=== PATIENT | female | born 1940 | race African-American/Black ===

== ENCOUNTER 2018-10-27 09:48 | Outpatient (CLI) | payer MEDICARE ==
[2018-10-27 10:58] LABS: #Basophils 0.1 thou/uL (0.0-0.2); #Lymphocytes 1.5 thou/uL (1.20-3.40); #Monocytes 0.7 thou/uL (0.11-0.59); #Neutrophils 4.5 thou/uL (1.40-6.50); %Basophils 1.7 % (0.0-1.0); %Eosinophils 0.7 % (0.0-10.0); %Lymphocytes 22.2 % (21.0-51.0); %Monocytes 10.2 % (0.0-10.0); %Neutrophils 65.2 % (42.0-75.0); Hemoglobin 12.8 g/dL (12.0-16.0); Mean Corpuscular HGB CONC 31.3 g/dL (32.0-36.0); Mean Corpuscular Hemoglobin 30.4 pg (27.0-31.0); Mean Corpuscular Volume 96.9 fL (78.0-98.0); Mean Platelet Volume 6.8 fL (7.4-10.4); Platelet Count 330 thou/uL (130-400); RBC Distribution Width 14.3 % (11.5-14.5); Red Blood Cell (RBC) Count 4.22 mill/uL (4.20-5.40)
[2018-10-27 11:10] LABS: ALT (SGPT) 8 U/L (8-55); AST (SGOT) 12 U/L (5-34); Albumin 3.9 g/dL (3.4-4.8); Alkaline Phosphatase 131 U/L (40-150); Anion Gap 13 mmol/L (10-20); BUN (Urea Nitrogen) 6 mg/dL (9.8-20.1); Bilirubin, Total 0.5 mg/dL (0.2-1.2); Calc. Creatinine Clearance 0 mL/min (70-130); Calcium 10.9 mg/dL (7.8-10.44); Carbon Dioxide 26 mmol/L (23-31); Chloride 103 mmol/L (98-107); Cholesterol 253 mg/dl (< 200 Desired); Estimated GFR-MDRD 77; Globulin 2.7 g/dL (2.4-3.5); Glucose 104 mg/dL (83-110); HDL Cholesterol 83 mg/dL (>60 Neg Risk); LDL Cholesterol, Calculated 153 mg/dL; Potassium 3.9 mmol/L (3.5-5.1); Protein, Total 6.6 g/dL (6.0-8.3); Sodium 138 mmol/L (136-145); Triglycerides 84 mg/dL (Less than 150)
--- NOTE | 2018-11-02 15:47 | MMO ---
Bilateral MAMMO Bilat Screen DDI. CLINICAL HISTORY: Patient is 78 years old and is seen for screening. The patient has no family history of breast cancer. The patient has a history of colon cancer more than 10 years ago. The patient has a history of left needle biopsy in 2017 - benign. VIEWS: The views performed were: bilateral craniocaudal and bilateral mediolateral oblique. FILMS COMPARED: The present examination has been compared to prior imaging studies performed at [facility] on 09/15/2014, 07/04/2016 and 07/22/2016. This study has been interpreted with the assistance of computer-aided detection. MAMMOGRAM FINDINGS: There are scattered fibroglandular densities. There are no suspicious masses, suspicious calcifications, or new areas of architectural distortion. IMPRESSION: THERE IS NO MAMMOGRAPHIC EVIDENCE OF MALIGNANCY. A ROUTINE FOLLOW-UP MAMMOGRAM IN 1 YEAR IS RECOMMENDED. ACR BI-RADS Category 1 - Negative MAMMOGRAPHY NOTE: 1. A negative mammogram report should not delay a biopsy if a dominant of clinically suspicious mass is present. 2. Approximately 10% to 15% of breast cancers are not detected by mammography. 3. Adenosis and dense breasts may obscure an underlying neoplasm.
== END 2018-10-27 09:49 | disposition home or self-care (01) ==
LOC: SCSMAMMO 09:48
PROVIDERS: ATTEND Family Medicine
DX: Z12.31 Encounter for screening mammogram for malignant neoplasm of breast (principal)
CPT/HCPCS: 36415; 77067; 80053; 80061; 85025

== ENCOUNTER 2018-11-26 12:28 | Outpatient (CLI) | payer MEDICARE ==
--- NOTE | 2018-11-26 12:53 | RAD ---
CHEST 2 VIEWS: HISTORY: Dyspnea. COMPARISON: 08/15/2013. 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 There is associated tortuosity. Card iomegaly is noted. Pulmonary vessels are prominent. Chronic changes of the lung parenchyma, without consolidation or mass. Lungs are hyperinflated. No pneumothorax or osseous abnormalities. Bilater al nipple shadows are noted. Coronary artery stent is noted. IMPRESSION: No significant interval change. POS: C
== END 2018-11-26 12:29 | disposition home or self-care (01) ==
LOC: RAD 12:28
PROVIDERS: ATTEND Internal Medicine
DX: R06.00 Dyspnea, unspecified (principal)
CPT/HCPCS: 71046

== ENCOUNTER 2020-05-15 10:54 | Outpatient (CLI) | payer MEDICARE ==
--- NOTE | 2020-05-15 11:32 | RAD ---
2 VIEW CHEST: Date: 05/15/2020 INDICATION: Dyspnea. COMPARISON: 08/23/2019. FINDINGS: Cardiomegaly with mild vascular engorgement. Diffuse interstitial prominence may represent mild inter stitial congestion or superimposed chronic interstitial process. The thoracic aortic stent graft is again noted with prominence of the thoracic aorta, which is stable . No evidence of consolidation or focal infiltrate. No significant effusion. Hyperexpansion again noted. Mild wedging of an upper thoracic vertebra. The other thoracic vertebral bodies maintain height and a lignment. IMPRESSION: Cardiomegaly with mild vascular and interstitial prominence, which appears stable. No significant int erval change. POS: AGW
== END 2020-05-15 10:55 | disposition home or self-care (01) ==
LOC: BICRAD 10:54
PROVIDERS: ATTEND Internal Medicine Pulmonary Disease
DX: R06.00 Dyspnea, unspecified (principal); I51.7 Cardiomegaly; J84.89 Other specified interstitial pulmonary diseases
CPT/HCPCS: 71046

== ENCOUNTER 2020-10-09 10:10 | Outpatient (CLI) | payer MEDICARE | END 2020-10-09 10:11 | disposition home or self-care (01) | LOC: BICULT 10:10 | PROVIDERS: ATTEND Physician Assistant Medical | DX: R74.8 Abnormal levels of other serum enzymes (principal); R16.0 Hepatomegaly, not elsewhere classified; I71.4 Abdominal aortic aneurysm, without rupture; I70.90 Unspecified atherosclerosis; K76.89 Other specified diseases of liver | CPT/HCPCS: 76705 ==

== ENCOUNTER 2020-10-16 09:58 | Outpatient (CLI) | payer MEDICARE | END 2020-10-16 09:59 | disposition home or self-care (01) | LOC: BICMAMMO 09:58 | PROVIDERS: ATTEND Family Medicine | DX: Z13.820 Encounter for screening for osteoporosis (principal); M81.0 Age-related osteoporosis without current pathological fracture; Z78.0 Asymptomatic menopausal state | CPT/HCPCS: 77080 ==

== ENCOUNTER 2021-05-30 16:16 | Inpatient (IN) | payer MEDICARE ==
[2021-05-30 18:18] VITALS: BMI 15.5
[2021-05-30] MEDS ORDERED: Acetaminophen 325 MG TAB PO PRN (20:26)
[2021-05-30] MEDS ORDERED: Ondansetron PF 4 MG/2 ML Vial IVP PRN (20:26)
[2021-05-30] MEDS: Mirtazapine 15 MG TAB PO SCH (21:14)
[2021-05-30 21:35] LABS: Magnesium 1.6 mg/dL (1.6-2.6)
[2021-05-30 21:39] LABS: Troponin I 0.021 ng/mL (< 0.028)
[2021-05-31 05:55] LABS: #Basophils 0.1 thou/uL (0.0-0.2); #Monocytes 0.8 thou/uL (0.11-0.59); #Neutrophils 4.3 thou/uL (1.40-6.50); %Basophils 0.9 % (0.0-1.0); %Eosinophils 0.3 % (0.0-10.0); %Lymphocytes 15.9 % (21.0-51.0); %Neutrophils 69.9 % (42.0-75.0); Hemoglobin 12.5 g/dL (12.0-16.0); Mean Corpuscular HGB CONC 32.6 g/dL (32.0-36.0); Mean Corpuscular Hemoglobin 31.5 pg (27.0-31.0); Mean Corpuscular Volume 96.5 fL (78.0-98.0); Mean Platelet Volume 8.5 fL (7.4-10.4); Platelet Count 190 thou/uL (130-400); RBC Distribution Width 13.2 % (11.5-14.5); Red Blood Cell (RBC) Count 3.97 mill/uL (4.20-5.40); White Blood Cell (WBC) Count 6.2 thou/uL (4.8-10.8)
[2021-05-31 06:45] LABS: Anion Gap 14 mmol/L (10-20); BUN (Urea Nitrogen) 9 mg/dL (9.8-20.1); Calc. Creatinine Clearance 35 mL/min (70-130); Calcium 10.2 mg/dL (7.8-10.44); Carbon Dioxide 21 mmol/L (23-31); Chloride 100 mmol/L (98-107); Glucose 72 mg/dL (83-110); Magnesium 1.5 mg/dL (1.6-2.6); Potassium 3.6 mmol/L (3.5-5.1); Sodium 131 mmol/L (136-145)
[2021-05-31] MEDS ORDERED: Nitroglycerin 0.4 MG TAB (25 Tab Bottle) SL PRN (07:07)
[2021-05-31] MEDS ORDERED: Magnesium 2 GM/50 ML 2 GM in Premix Bag 1 BAG IVPB SCH (07:30)
[2021-05-31] MEDS ORDERED: FLU VACC QS2021-22(65YR UP)/PF 240 MCG/0.7 ML SYRINGE IM ONE (09:00)
[2021-05-31] MEDS ORDERED: Atenolol 25 MG TAB PO SCH (09:00)
[2021-05-31 09:02] LABS: INR-International Normal Ratio 1.9; Prothrombin Time 21.8 sec (12.0-14.7)
[2021-05-31] MEDS: Aspirin Chewable 81 MG TAB PO SCH (09:18)
[2021-05-31] MEDS: Cilostazol 100 MG TAB PO SCH ×2 (09:18→16:16)
[2021-05-31] MEDS: Montelukast Sodium 10 mg Tablet PO SCH (09:18)
[2021-05-31] MEDS: Furosemide 20 MG TAB PO SCH (09:18)
[2021-05-31] MEDS: Cholecalciferol 1,000 UNITS (25 MCG) TAB PO SCH (09:19)
[2021-05-31] MEDS: Atorvastatin Calcium 10 MG TAB PO SCH (09:19)
[2021-05-31] MEDS ORDERED: Warfarin Sodium 3 MG TAB PO SCH (17:00)
[2021-05-31] MEDS: Mirtazapine 15 MG TAB PO SCH (20:25)
[2021-06-01 05:42] LABS: #Basophils 0.1 thou/uL (0.0-0.2); #Lymphocytes 0.8 thou/uL (1.20-3.40); #Monocytes 0.7 thou/uL (0.11-0.59); #Neutrophils 3.2 thou/uL (1.40-6.50); %Basophils 1.3 % (0.0-1.0); %Eosinophils 0.6 % (0.0-10.0); %Lymphocytes 17.4 % (21.0-51.0); %Monocytes 13.6 % (0.0-10.0); %Neutrophils 67.1 % (42.0-75.0); Hemoglobin 12.4 g/dL (12.0-16.0); Mean Corpuscular HGB CONC 32.2 g/dL (32.0-36.0); Mean Corpuscular Hemoglobin 30.8 pg (27.0-31.0); Mean Corpuscular Volume 95.9 fL (78.0-98.0); Mean Platelet Volume 8.6 fL (7.4-10.4); Platelet Count 164 thou/uL (130-400); Red Blood Cell (RBC) Count 4.02 mill/uL (4.20-5.40); White Blood Cell (WBC) Count 4.8 thou/uL (4.8-10.8)
[2021-06-01 05:57] LABS: INR-International Normal Ratio 1.9; Prothrombin Time 22.3 sec (12.0-14.7)
[2021-06-01 06:01] LABS: Anion Gap 12 mmol/L (10-20); BUN (Urea Nitrogen) 18 mg/dL (9.8-20.1); Calc. Creatinine Clearance 24 mL/min (70-130); Calcium 10.3 mg/dL (7.8-10.44); Carbon Dioxide 24 mmol/L (23-31); Chloride 101 mmol/L (98-107); Glucose 98 mg/dL (83-110); Potassium 3.6 mmol/L (3.5-5.1); Sodium 133 mmol/L (136-145)
[2021-06-01 06:05] LABS: D-Dimer Test 4.98 *mcg/mL (0.27-0.43)
[2021-06-01] MEDS: Cilostazol 100 MG TAB PO SCH ×2 (07:05→17:46)
[2021-06-01] MEDS: Aspirin Chewable 81 MG TAB PO SCH (08:33)
[2021-06-01] MEDS: Cholecalciferol 1,000 UNITS (25 MCG) TAB PO SCH (08:33)
[2021-06-01] MEDS: Atorvastatin Calcium 10 MG TAB PO SCH (08:33)
[2021-06-01] MEDS: Furosemide 20 MG TAB PO SCH (08:36)
[2021-06-01] MEDS: Montelukast Sodium 10 mg Tablet PO SCH (08:36)
[2021-06-01] MEDS: Benzonatate 100 MG CAP PO SCH ×2 (17:45→20:22)
[2021-06-01] MEDS: Warfarin Sodium 3 MG TAB PO SCH (17:49)
[2021-06-01] MEDS: Mirtazapine 15 MG TAB PO SCH (20:20)
[2021-06-02 06:12] LABS: #Lymphocytes 1.2 thou/uL (1.20-3.40); #Monocytes 0.6 thou/uL (0.11-0.59); #Neutrophils 3.8 thou/uL (1.40-6.50); %Basophils 0.3 % (0.0-1.0); %Eosinophils 0.3 % (0.0-10.0); %Lymphocytes 20.8 % (21.0-51.0); %Monocytes 11.4 % (0.0-10.0); %Neutrophils 67.2 % (42.0-75.0); Hemoglobin 12.5 g/dL (12.0-16.0); Mean Corpuscular HGB CONC 33.8 g/dL (32.0-36.0); Mean Corpuscular Hemoglobin 32.3 pg (27.0-31.0); Mean Corpuscular Volume 95.7 fL (78.0-98.0); Mean Platelet Volume 8.7 fL (7.4-10.4); Platelet Count 147 thou/uL (130-400); Red Blood Cell (RBC) Count 3.86 mill/uL (4.20-5.40); White Blood Cell (WBC) Count 5.6 thou/uL (4.8-10.8)
[2021-06-02 06:35] LABS: Prothrombin Time 23.3 sec (12.0-14.7)
[2021-06-02 06:38] LABS: Anion Gap 10 mmol/L (10-20); BUN (Urea Nitrogen) 12 mg/dL (9.8-20.1); Calc. Creatinine Clearance 32 mL/min (70-130); Calcium 10.1 mg/dL (7.8-10.44); Carbon Dioxide 27 mmol/L (23-31); Chloride 101 mmol/L (98-107); Glucose 96 mg/dL (83-110); Magnesium 1.6 mg/dL (1.6-2.6); Potassium 3.5 mmol/L (3.5-5.1); Sodium 134 mmol/L (136-145)
[2021-06-02 06:44] LABS: D-Dimer Test 4.49 *mcg/mL (0.27-0.43)
[2021-06-02] MEDS: Cholecalciferol 1,000 UNITS (25 MCG) TAB PO SCH (08:18)
[2021-06-02] MEDS: Cilostazol 100 MG TAB PO SCH ×2 (08:21→17:01)
[2021-06-02] MEDS: Montelukast Sodium 10 mg Tablet PO SCH (08:22)
[2021-06-02] MEDS: Furosemide 20 MG TAB PO SCH (08:22)
[2021-06-02] MEDS: Benzonatate 100 MG CAP PO SCH ×3 (08:22→20:23)
[2021-06-02] MEDS: Aspirin Chewable 81 MG TAB PO SCH (08:22)
[2021-06-02] MEDS: Atorvastatin Calcium 10 MG TAB PO SCH (08:23)
[2021-06-02] MEDS ORDERED: Diltiazem HCl SR 90 mg Capsule PO SCH (09:00)
[2021-06-02] MEDS: Warfarin Sodium 3 MG TAB PO SCH (17:01)
[2021-06-02] MEDS: Mirtazapine 15 MG TAB PO SCH (20:23)
[2021-06-03] MEDS: Cilostazol 100 MG TAB PO SCH ×2 (06:06→16:32)
[2021-06-03 06:39] LABS: INR-International Normal Ratio 2.4; Prothrombin Time 26.4 sec (12.0-14.7)
[2021-06-03 06:41] LABS: D-Dimer Test 3.26 *mcg/mL (0.27-0.43)
[2021-06-03] MEDS: Cholecalciferol 1,000 UNITS (25 MCG) TAB PO SCH (08:39)
[2021-06-03] MEDS: Montelukast Sodium 10 mg Tablet PO SCH (08:39)
[2021-06-03] MEDS: Furosemide 20 MG TAB PO SCH (08:40)
[2021-06-03] MEDS: Atorvastatin Calcium 10 MG TAB PO SCH (08:40)
[2021-06-03] MEDS: Aspirin Chewable 81 MG TAB PO SCH (08:40)
[2021-06-03] MEDS: Benzonatate 100 MG CAP PO SCH ×3 (08:40→21:29)
[2021-06-03] MEDS: Warfarin Sodium 3 MG TAB PO SCH (16:33)
[2021-06-03] MEDS: Mirtazapine 15 MG TAB PO SCH (21:29)
[2021-06-04] MEDS ORDERED: Metoprolol Tartrate 5 MG/5 ML VIAL IVP PRN (04:55)
[2021-06-04 05:02] LABS: INR-International Normal Ratio 2.6
[2021-06-04] MEDS: Aspirin Chewable 81 MG TAB PO SCH (07:35)
[2021-06-04] MEDS: Cholecalciferol 1,000 UNITS (25 MCG) TAB PO SCH (07:35)
[2021-06-04] MEDS: Cilostazol 100 MG TAB PO SCH (07:35)
[2021-06-04] MEDS: Furosemide 20 MG TAB PO SCH (07:36)
[2021-06-04] MEDS: Montelukast Sodium 10 mg Tablet PO SCH (07:36)
[2021-06-04] MEDS: Benzonatate 100 MG CAP PO SCH (07:37)
[2021-06-04] MEDS: Atorvastatin Calcium 10 MG TAB PO SCH (07:37)
[2021-06-04] MEDS ORDERED: Dexamethasone 4 MG TAB PO SCH (08:00)
[2021-06-04] MEDS ORDERED: Ascorbic Acid 500 mg Chewable Tablet PO SCH (09:00)
[2021-06-04] MEDS ORDERED: Zinc Sulfate 220 MG CAP PO SCH (09:00)
[2021-06-04 13:01] VITALS: TEMP 97.5
[2021-06-04 16:57] VITALS: BP 117/58
[2021-06-04] MEDS ORDERED: Metoprolol Tartrate 25 MG TAB PO SCH (21:00)
== END 2021-06-04 16:06 | disposition home or self-care (01) | DRG 177 ==
LOC: SURG A 16:16 → 2SW 17:54 → OBSVTOIN 06-01 18:13
PROVIDERS: ADMIT Internal Medicine; ATTEND Internal Medicine
PROC: 8E0ZXY6 Isolation (ICD-10-PCS; principal; 2021-06-01)
DX: U07.1 COVID-19 (principal); J12.82 Pneumonia due to coronavirus disease 2019; I48.11 Longstanding persistent atrial fibrillation; I25.10 Atherosclerotic heart disease of native coronary artery without angina pectoris; F17.210 Nicotine dependence, cigarettes, uncomplicated; E78.5 Hyperlipidemia, unspecified; R00.1 Bradycardia, unspecified; Z85.038 Personal history of other malignant neoplasm of large intestine; Z92.21 Personal history of antineoplastic chemotherapy; Z90.49 Acquired absence of other specified parts of digestive tract; Z88.0 Allergy status to penicillin; Z79.899 Other long term (current) drug therapy; Z79.82 Long term (current) use of aspirin; Z79.01 Long term (current) use of anticoagulants; Z90.710 Acquired absence of both cervix and uterus; Z82.49 Family history of ischemic heart disease and other diseases of the circulatory system
CPT/HCPCS: 36415; 71045; 80048; 82728; 83735; 85025; 85379; 85610; 86140; 87804; 93306; 94760; 96375; G0378; J3475; J8540

== ENCOUNTER 2021-11-07 11:00 | Outpatient (CLI) | payer MEDICARE | END 2021-11-07 11:01 | disposition home or self-care (01) | LOC: PET 11:00 | PROVIDERS: ATTEND Internal Medicine Hematology & Oncology | DX: R91.1 Solitary pulmonary nodule (principal); D50.0 Iron deficiency anemia secondary to blood loss (chronic); F17.210 Nicotine dependence, cigarettes, uncomplicated | CPT/HCPCS: 78815; A9552 ==

== ENCOUNTER 2022-01-14 13:29 | Outpatient (CLI) | payer MEDICARE | END 2022-01-14 13:30 | disposition home or self-care (01) | LOC: RAD 13:29 | PROVIDERS: ATTEND Internal Medicine | DX: J43.9 Emphysema, unspecified (principal) | CPT/HCPCS: 71046 ==

== ENCOUNTER 2023-01-26 10:50 | Outpatient (CLI) | payer MEDICARE | END 2023-01-26 10:51 | disposition home or self-care (01) | LOC: RAD 10:50 | PROVIDERS: ATTEND Internal Medicine | DX: R06.00 Dyspnea, unspecified (principal) | CPT/HCPCS: 71046 ==

== ENCOUNTER 2023-09-24 11:50 | Outpatient (CLI) | payer MEDICARE | END 2023-09-24 11:51 | disposition home or self-care (01) | LOC: BICMAMMO 11:50 | PROVIDERS: ATTEND Family Medicine | DX: Z13.820 Encounter for screening for osteoporosis (principal); Z78.0 Asymptomatic menopausal state; M81.0 Age-related osteoporosis without current pathological fracture | CPT/HCPCS: 77080 ==

== ENCOUNTER 2024-05-30 12:04 | Outpatient (CLI) | payer MEDICARE | END 2024-05-30 12:05 | disposition home or self-care (01) | LOC: SCSRAD 12:04 | PROVIDERS: ATTEND Family Medicine | DX: J44.1 Chronic obstructive pulmonary disease with (acute) exacerbation (principal); J98.8 Other specified respiratory disorders | CPT/HCPCS: 71046 ==

== ENCOUNTER 2025-02-17 15:50 | Outpatient (CLI) | payer MEDICARE | END 2025-02-17 15:51 | disposition home or self-care (01) | LOC: SCSRAD 15:50 | DX: R06.00 Dyspnea, unspecified (principal); I51.7 Cardiomegaly | CPT/HCPCS: 71046 ==